=== PATIENT | female | born 1985 | race Asian ===

== ENCOUNTER 2017-09-27 21:55 | Inpatient (IN) | payer SELFPAY ==
[~2017-09-27] VITALS: Ht 160 cm; Wt 59.0 kg
[2017-09-27 22:00] VITALS: BP 102/51
[2017-09-27] MEDS ORDERED: OXYTOCIN 10 UNITS/ML VIAL IM PRN (22:20)
[2017-09-27] MEDS ORDERED: CARBOPROST 250 MCG/ML AMP IM ONE (22:20)
[2017-09-27] MEDS ORDERED: PROMETHAZINE 25 MG/ML VIAL IVP PRN (22:20)
[2017-09-27] MEDS ORDERED: NALBUPHINE 10 MG/ML AMP IVP PRN (22:20)
[2017-09-27] MEDS ORDERED: LACTATED RINGERS 1,000 ML IV SCH (22:20)
[2017-09-27] MEDS ORDERED: METHYLERGONOVINE 0.2 MG/ML AMP IM PRN (22:20)
[2017-09-27] MEDS ORDERED: OXYTOCIN 20 UNITS in LACTATED RINGERS 1,000 ML IV SCH (22:20)
[2017-09-27] MEDS ORDERED: OXYTOCIN 20 UNITS/LR PREMIX 1,000 ML IV ONE (22:27)
[2017-09-27] MEDS ORDERED: OXYTOCIN 10 UNITS/ML VIAL ONE (22:27)
[2017-09-27 22:37] VITALS: BP 102/51
[2017-09-27] MEDS ORDERED: ROPIVACAINE 0.2%/NS PREMIX 250 ML EPI ONE (22:40)
[2017-09-27 23:14] LABS: BASOPHILS % (AUTO) 0.4 % (0.0-2.0); EOSINOPHILS % (AUTO) 0.3 % (0.0-4.0); HEMATOCRIT 33.8 % (36-48); HEMOGLOBIN 11.1 g/dL (12.0-16.0); LYMPHOCYTES % (AUTO) 15.8 % (20.5-51.1); MEAN CORPUSCULAR HEMOGLOBIN 31 pg (27-31); MEAN CORPUSCULAR HGB CONC 33 g/dL (33-37); MONOCYTES # (AUTO) 0.5 K/uL (0.8-1.0); MONOCYTES % (AUTO) 7.6 % (1.7-9.3); NEUTROPHILS % (AUTO) 75.9 % (42.2-75.2); PLATELET COUNT (AUTO) 143 K/uL (140-450); RED BLOOD CELL COUNT(AUTO) 3.59 MIL/uL (4.20-5.40); RED CELL DISTRIBUTION WIDTH 16.4 % (11.6-13.7); WHITE BLOOD COUNT (AUTO) 6.6 K/uL (4.8-10.8)
[2017-09-28 02:18] LABS: APPEARANCE,URINE CLEAR (CLEAR); BILIRUBIN,URINE NEGATIVE (NEGATIVE); BLOOD, URINE NEGATIVE (NEGATIVE); COLOR,URINE YELLOW (YELLOW); LEUKOCYTE ESTERASE ,URINE NEGATIVE (NEGATIVE); NITRITE, URINE NEGATIVE (NEGATIVE); UGLUCOSE NEGATIVE (NEGATIVE)
[2017-09-28] MEDS ORDERED: HYDROcodone/APAP 5/325 MG 1 TAB TAB PO PRN (05:10)
[2017-09-28] MEDS ORDERED: OXYTOCIN 10 UNITS/ML VIAL IM PRN (05:10)
[2017-09-28] MEDS ORDERED: oxyCODONE/APAP 5/325 MG 1 TAB TAB PO PRN (05:10)
[2017-09-28] MEDS ORDERED: MEASLES, MUMPS, AND RUBELLA 1 VIAL SQVAC PRN (05:10)
[2017-09-28] MEDS ORDERED: BENZOCAINE/MENTHOL 20%-0.5% 60 GM CAN TP PRN (05:10)
[2017-09-28] MEDS ORDERED: IBUPROFEN 800 MG TAB PO PRN (05:10)
[2017-09-28] MEDS ORDERED: METHYLERGONOVINE 0.2 MG/ML AMP IM PRN (05:10)
[2017-09-28] MEDS ORDERED: TEMAZEPAM 15 MG CAP PO PRN (05:10)
[2017-09-28 09:00] LABS: RAPID PLASMA REAGIN NON-REACTIVE (Non Reactiv)
--- NOTE | 2017-09-28 09:05 | NUR ---
PATIENT HAS BEEN SCREENED AND CATEGORIZED LOW NUTRITION RISK. PATIENT WILL BE SEEN WITHIN 7 DAYS OF ADMISSION. 10/04/[address]
[2017-09-28] MEDS ORDERED: DOCUSATE SOD/SENNA 50/8.6 MG 1 TAB PO SCH (21:00)
[2017-09-29 06:07] LABS: HEMATOCRIT 33.3 % (36-48); HEMOGLOBIN 11.2 g/dL (12.0-16.0)
== END 2017-09-29 14:15 | disposition home or self-care (01) | DRG 775 ==
LOC: MLD 21:55 → MFCC 09-28 08:23
PROVIDERS: ADMIT Obstetrics & Gynecology; ATTEND Obstetrics & Gynecology
PROC: 10E0XZZ Delivery of Products of Conception, External Approach (ICD-10-PCS; principal; 2017-09-28)
PROC: 0KQM0ZZ Repair Perineum Muscle, Open Approach (ICD-10-PCS; 2017-09-28)
PROC: 10907ZC Drainage of Amniotic Fluid, Therapeutic from Products of Conception, Via Natural or Artificial Opening (ICD-10-PCS; 2017-09-28)
PROC: 3E0234Z Introduction of Serum, Toxoid and Vaccine into Muscle, Percutaneous Approach (ICD-10-PCS; 2017-09-28)
PROC: 3E0134Z Introduction of Serum, Toxoid and Vaccine into Subcutaneous Tissue, Percutaneous Approach (ICD-10-PCS; 2017-09-28)
PROC: 3E0R3BZ Introduction of Anesthetic Agent into Spinal Canal, Percutaneous Approach (ICD-10-PCS; 2017-09-28)
PROC: 00HU33Z Insertion of Infusion Device into Spinal Canal, Percutaneous Approach (ICD-10-PCS; 2017-09-28)
DX: O77.0 Labor and delivery complicated by meconium in amniotic fluid (principal); Z37.0 Single live birth; Z3A.39 39 weeks gestation of pregnancy; O70.1 Second degree perineal laceration during delivery; Z23 Encounter for immunization
CPT/HCPCS: 36415; 59409; 81003; 85018; 85025; 86592; 86886; 86900; 86901; 90707; 90715; C1758; J2590; J2795; J7120